=== PATIENT | female | born 1985 ===

== ENCOUNTER 2019-05-14 13:36 | Emergency (ER) | payer MEDICAID, OTHER ==
[~2019-05-14] VITALS: Ht 162.6 cm; Wt 93.3 kg
--- NOTE | 2019-05-14 13:49 | NUR ---
patient arrives with a fever she reports 101 that began this morning. she also reports congestion for one day
[2019-05-14] MEDS ORDERED: LISI-170 PO (13:56)
[2019-05-14] MEDS ORDERED: IBUPROFEN 600 MG TABLET PO ONE (14:00)
[2019-05-14 14:47] LABS: MICROSCOPIC INDICATED
[2019-05-14 14:50] LABS: RAPID INFLUENZA A Negative (Negative); RAPID INFLUENZA B Negative (Negative)
[2019-05-14 16:25] VITALS: BP 135/78
== END 2019-05-14 16:28 | disposition home or self-care (01) ==
LOC: ED 13:58
DX: B97.29 Other coronavirus as the cause of diseases classified elsewhere (principal); M79.10 Myalgia, unspecified site; I10 Essential (primary) hypertension; Z90.49 Acquired absence of other specified parts of digestive tract
CPT/HCPCS: 81001; 87400; 99283

== ENCOUNTER 2019-06-28 19:46 | Emergency (ER) | payer MEDICAID ==
[~2019-06-28] VITALS: Ht 162.6 cm; Wt 100.0 kg
[~2019-06-28 19:46] MED LIST: LISI-170 PO
--- NOTE | 2019-06-28 19:54 | NUR ---
NIRAJ MENDOZA BS FOR EXAM. PT DENIES CP CURRENTLY. STATES CP ACROSS CHEST X 3 DAYS. NO MEDS TAKEN FOR SX. PT A&OX4, RESP EVEN & UNLABORED, SPEECH CLEAR, SKIN WNL. PT ADMITS TO ETOH INTAKE TODAY - STARTED LAST NOC. LAST ORAL INTAKE: 1400. LMP: CURRENT - STARTED WEDNESDAY. PT LAUGHING AT QUESTIONS, UNEXPECTEDLY.
--- NOTE | 2019-06-28 20:12 | NUR ---
XR AT BS
[2019-06-28 20:40] LABS: BASOPHILS # (AUTO) 0.05 x10^3/uL (0-0.1); BASOPHILS % (AUTO) 1 % (0-1); EOSINOPHILS # (AUTO) 0.08 x10^3/uL (0-0.4); EOSINOPHILS % (AUTO) 1 % (1-7); LYMPHOCYTES % (AUTO) 45 % (22-44); MD NO; MEAN CORPUSCULAR HEMOGLOBIN 30.9 pg (27.0-34.8); MEAN CORPUSCULAR HGB CONC 33.6 g/dL (32.4-35.8); MEAN CORPUSCULAR VOLUME 91.9 fL (80-100); MEAN PLATELET VOLUME 7.4 fL (7.4-10.4); MONOCYTES # (AUTO) 0.51 x10^3/uL (0.2-0.8); MONOCYTES % (AUTO) 7 % (2-9); NEUTROPHILS # (AUTO) 3.28 x10^3/uL (1.8-6.8); NEUTROPHILS % (AUTO) 46 % (42-75); PLATELET COUNT 441 x10^3/uL (130-400); RED CELL DISTRIBUTION WIDTH 14.5 % (9.6-15.2)
[2019-06-28 20:52] LABS: ANION GAP 8 mmol/L (5-15); CALCIUM 8.4 mg/dL (8.5-10.1); CHLORIDE 116 mmol/L (98-107); CREATININE 0.97 mg/dL (0.55-1.02)
[2019-06-28 20:55] LABS: TROPONIN I < 0.015 ng/mL (0.000-0.045)
[2019-06-28 21:08] VITALS: BP 123/90
== END 2019-06-28 21:20 | disposition home or self-care (01) ==
LOC: ED 21:00
DX: R07.89 Other chest pain (principal); F10.129 Alcohol abuse with intoxication, unspecified; R00.0 Tachycardia, unspecified; I25.2 Old myocardial infarction; I10 Essential (primary) hypertension; Z90.49 Acquired absence of other specified parts of digestive tract; Y90.9 Presence of alcohol in blood, level not specified
CPT/HCPCS: 36415; 71045; 80048; 82040; 84484; 85025; 93005; 99285

== ENCOUNTER 2019-12-03 01:07 | Emergency (ER) | payer MEDICAID ==
[~2019-12-03] VITALS: Ht 162.6 cm; Wt 99.2 kg
[2019-12-03 02:24] LABS: BASOPHILS % (AUTO) 1 % (0-1); EOSINOPHILS % (AUTO) 3 % (1-7); LYMPHOCYTES % (AUTO) 39 % (22-44); MEAN CORPUSCULAR HEMOGLOBIN 28.9 pg (27.0-34.8); MEAN CORPUSCULAR HGB CONC 33.3 g/dL (32.4-35.8); MEAN PLATELET VOLUME 7.5 fL (7.4-10.4); MONOCYTES % (AUTO) 4 % (2-9); NEUTROPHILS % (AUTO) 53 % (42-75); PLATELET COUNT 387 x10^3/uL (130-400); RED BLOOD COUNT 4.26 x10^6/uL (3.82-5.3); RED CELL DISTRIBUTION WIDTH 15.7 % (9.6-15.2)
[2019-12-03 02:25] LABS: MD NO
[2019-12-03 02:34] LABS: ALBUMIN 3.7 g/dL (3.4-5.0); ANION GAP 6 mmol/L (5-15); CALCIUM 8.4 mg/dL (8.5-10.1); CHLORIDE 108 mmol/L (98-107); CREATININE 0.66 mg/dL (0.55-1.02)
[2019-12-03 02:37] LABS: TROPONIN I < 0.015 ng/mL (0.000-0.045)
[2019-12-03 04:02] VITALS: BP 103/53
== END 2019-12-03 04:21 | disposition home or self-care (01) ==
LOC: ED 04:00
DX: R05 Cough (principal); I44.5 Left posterior fascicular block; I21.9 Acute myocardial infarction, unspecified; R06.02 Shortness of breath; I10 Essential (primary) hypertension; F17.200 Nicotine dependence, unspecified, uncomplicated; Z90.49 Acquired absence of other specified parts of digestive tract
CPT/HCPCS: 36415; 71045; 80048; 82040; 84484; 85025; 93005; 99285

== ENCOUNTER 2020-10-17 04:44 | Emergency (ER) | payer MEDICAID ==
[~2020-10-17] VITALS: Ht 162.6 cm; Wt 78.0 kg
[2020-10-17] MEDS ORDERED: KETOROLAC 60 MG/2 ML ONE (05:43)
[2020-10-17] MEDS ORDERED: HYDROcodone/APAP 5/325 TABLET ONE (05:43)
[2020-10-17] MEDS ORDERED: HYDROcodone/APAP 5/325 TABLET PO ONE (06:00)
[2020-10-17] MEDS ORDERED: KETOROLAC 60 MG/2 ML IM ONE (06:00)
[2020-10-17 06:43] VITALS: BP 109/76
--- NOTE | 2020-10-17 06:43 | NUR ---
PT. REPORTS PAIN DOWN TO 2/10 AFTER PAIN MEDS. X-RAY READS PENDING.
[2020-10-17] MEDS ORDERED: LIDOCAINE-MPF 1%, 5ML ONE (06:58)
--- NOTE | 2020-10-17 06:58 | NUR ---
REPORT TO GAYE JOHNSON.
[2020-10-17] MEDS ORDERED: LIDOCAINE-MPF 1%, 5ML INFIL ONE (07:00)
--- NOTE | 2020-10-17 07:33 | NUR ---
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
--- NOTE | 2020-10-17 08:35 | NUR ---
Patient given discharge instructions and they have confirmed that they understand the instructions. Patient ambulatory with steady gait. NAD, all questions answered appropriately, denies additional needs at this time. No personal belongings left in room after discharge.
== END 2020-10-17 08:36 | disposition home or self-care (01) ==
LOC: ED 08:30
DX: S60.221A Contusion of right hand, initial encounter (principal); Z87.891 Personal history of nicotine dependence; Z90.49 Acquired absence of other specified parts of digestive tract; X58.XXXA Exposure to other specified factors, initial encounter; Y93.89 Activity, other specified; Y92.89 Other specified places as the place of occurrence of the external cause; Y99.8 Other external cause status
CPT/HCPCS: 29125; 73110; 73130; 96372; 99284; J1885